=== PATIENT | female | born 1980 | race Caucasian/White ===

== ENCOUNTER → 2019-10-26 | Outpatient (CLI) | payer BC | LOC: GMAL 11:00 | PROVIDERS: ATTEND Family Medicine | DX: E53.8 Deficiency of other specified B group vitamins (principal); E03.8 Other specified hypothyroidism; E34.9 Endocrine disorder, unspecified; E55.9 Vitamin D deficiency, unspecified; Z79.899 Other long term (current) drug therapy; Z13.220 Encounter for screening for lipoid disorders ==

== ENCOUNTER 2020-02-25 05:13 | Emergency (ER) | payer BC ==
[2020-02-25] MEDS: SODIUM CHLORIDE 0.9% 1000ML 1,000 ML IVS ONE (05:50)
--- NOTE | 2020-02-25 06:05 | ED.PDOC ---
History of Present Illness - General Source: patient Exam Limitations: no limitations - History of Present Illness Initial Comments: The patient is a 39-year-old female brought in by EMS secondary to left lower quadrant abdominal pain that is been going on for 3 weeks. It got much worse last night. The patient does have a hard time sitting still. She reports that a lot of times she feels like she needs to urinate but cannot. She feels like she may be having a problem emptying her bladder. She does have known chronic constipation likely related to her Adderall. The patient received Zofran and Toradol prior to arrival. She does appear to have some difficulty mentating currently whether it is from the medications or pain or something else I am uncertain. Pupils are fairly small. She is alert and oriented. No respiratory distress. No chest pain. She reports a couple of episodes of nausea and vomiting over the last few days. The patient has had a hysterectomy in the past and she apparently had a abdominal surgery a few years ago for a bowel obstruction. No known history of any diverticulitis. Axillary temperature on the patient was 89 and a temporal temperature was 94. An oral temperature is currently being obtained. The patient does have a history of hypothyroidism but reports that she is taking her Synthroid. No history of sepsis. No history of any cardiac problems. No syncope. Corrected oral temperature is 97.4. Timing/Duration: getting worse, other - Weeks Improving Factors: nothing Worsening Factors: nothing Associated Symptoms: diaphoresis, loss of appetite, malaise, nausea/vomiting <Jaime Sewell - Last Filed: 02/25/20 06:40> <Ed Coppola - Last Filed: 02/25/20 07:47> - General Time Seen by Provider: 02/25/20 05:16 - History of Present Illness Allergies/Adverse Reactions: Allergies NO KNOWN ALLERGY Allergy (Unverified 07/01/13 13:01) Home Medications: Ambulatory Orders Amphetamine-Dextroamphetamine [Adderall] 1 tab PO 02/25/20 Dicyclomine HCl [Bentyl] 20 mg PO Q6H PRN #20 tab 02/25/20 Ibuprofen [Motrin] 400 mg PO Q6H PRN #20 tab 02/25/20 Levothyroxine Sodium [Synthroid] 50 mcg PO 02/25/20 Polyethylene Glycol 3350 [Miralax] 17 gm PO DAILY 15 Days #238 bottle 02/25/20 Review of Systems - Review of Systems Constitutional: States: diaphoresis, malaise EENTM: States: no symptoms reported Respiratory: States: no symptoms reported Cardiology: States: no symptoms reported Gastrointestinal/Abdominal: States: constipation, nausea, vomiting Genitourinary: States: see HPI Musculoskeletal: States: back pain - Left lower Skin: States: no symptoms reported Neurological: States: anxiety Endocrine: States: no symptoms reported All other Systems: No Change from Baseline <Jaime Sewell - Last Filed: 02/25/20 06:40> Past Medical History (General) - Patient Medical History Hx Seizures: No Hx Stroke: No Hx Dementia: No Hx Asthma: No Hx of COPD: No Hx Cardiac Disorders: No Hx Congestive Heart Failure: No Hx Pacemaker: No Hx Hypertension: No Hx Thyroid Disease: Yes Hx Diabetes: No Hx Gastroesophageal Reflux: Yes Hx Renal Disease: No Hx of HIV: No Hx MRSA: No Surgical History: Hysterectomy, other - Vaccination History Hx Tetanus, Diphtheria Vaccination: No Hx Influenza Vaccination: No Hx Pneumococcal Vaccination: No Immunizations Comment: refuses vaccines - Social History Hx Tobacco Use: No Hx Alcohol Use: No Hx Substance Use: No Hx Substance Use Treatment: No Hx Depression: No - Female History Patient is a Female of Child Bearing Age (10 -59 yrs old): Yes - hysterectomy <Jaime Sewell - Last Filed: 02/25/20 06:40> Family Medical History - Family History Mother Family History: No Known <Jaime Sewell - Last Filed: 02/25/20 06:40> Physical Exam - Physical Exam General Appearance: Alert, Anxious, Obvious distress Eye Exam: bilateral normal Ears, Nose, Throat: hearing grossly normal, normal ENT inspection Neck: full range of motion, supple Respiratory: lungs clear, normal breath sounds, no respiratory distress, no accessory muscle use Cardiovascular/Chest: normal peripheral pulses, regular rate, rhythm - Borderline sinus bradycardia, no edema Peripheral Pulses: radial,right: 2+, radial,left: 2+ Gastrointestinal/Abdominal: soft, other - Left lateral and lower abdominal discomfort to palpation. Rectal Exam: deferred Back Exam: no vertebral tenderness, CVA tenderness (L) - Questionable Extremity: normal range of motion, non-tender, normal inspection, no pedal edema, no calf tenderness, normal capillary refill Neurologic: insurance case manager II-XII nml as tested, alert, oriented x 3, other - Patient is technically alert and oriented x3. Mentation seems to be slow or focus is poor. Skin Exam: pallor Comments: Vital Signs - 24 hr 02/25/20 02/25/20 05:36 06:00 Temperature 94.4 F L 97.4 F L Pulse Rate [ 53 L montior] Respiratory 20 Rate Blood Pressure 137/91 [Left Arm] O2 Sat by Pulse 100 Oximetry <Jaime Sewell - Last Filed: 02/25/20 06:40> Progress - Progress Progress: 02/25/20 06:40 The patient is a 39-year-old female presented emergency room with 3 weeks of intermittent left lower quadrant pain worsening tonight. She is not entirely certain at this point. CT scan of abdomen pelvis with contrast is being done. Pain has significantly improved since arrival. Pain is gone from a 9 down to a 3. Bedside ultrasound by me post void shows minimal residual. There is some hematuria on the lab work. She cannot get past. Patient will be followed by oncoming ER physician. Vital signs are remaining stable. - Results/Orders Results/Orders: EKG shows normal sinus rhythm at 65 bpm. Borderline right axis deviation. Normal R wave progression. No ST segment or T wave changes indicative of acute ischemia. Borderline prolonged QT interval. Sinus arrhythmia. <Jaime Sewell - Last Filed: 02/25/20 06:40> - Progress Progress: 02/25/20 07:00 I assumed care of the patient after a detailed discussion with Dr. Sewell regard ing her presentation of left lower quadrant pain intermittently for the past 3 weeks with associated nausea and vomiting. CT pending at this time. UA did show some microscopic hematuria. Vital signs are reassuring at this time, pain improved from 9-3 after Toradol. CJT 02/25/20 07:46 Rechecked. Pain remains improved. Reviewed CT/lab findings and plan for discharge. Recommended follow-up with PCP in 3 to 5 days for recheck. Strict warnings given to return the emergency room for worsening pain, fever, blood in stool, vomiting blood, blood in urine, or any other concerns. Ed Coppola DO [facility] #[id number] - Results/Orders Results/Orders: EXAM: CT Abdomen/Pelvis with Contrast HISTORY: llq pain intermit 3 weeks, distant hx bowel obs COMPARISON: Abdomen two views 02/25/2020 TECHNIQUE: Abdomen/pelvis axial images acquired IV contrast. Coronal and sagittal reformats created. Exam performed according to departmental dose- optimization program which includes automated exposure control, adjustment of mA and/or kV according to patient size, and/or use of iterative reconstruction technique. FINDINGS: No free air or significant free fluid. Liver, gallbladder, spleen, pancreas, adrenals, both adnexa, and urinary bladder unremarkable. Hysterectomy. Few tiny hypodense round bilateral kidney lesions are too small to fully characterize by CT size criteria but statistically likely represent cysts. Small nonobstructing left renal midlevel stone. Nonopacified stomach, small bowel, appendix, and large bowel appear grossly unremarkable. Unremarkable abdominal aorta. Multiple small round bilateral inferior pelvic calcifications likely represent phleboliths. Bones unremarkable. IMPRESSION: 1. Small nonobstructing left renal stone. 2. Few tiny hypodense round bilateral kidney lesions are too small to fully characterize by CT size criteria but statistically likely represent cysts. 3. Hysterectomy. Electronically signed by: Deric Cuenca MD 02/25/2020 7:29 AM CDT <Ed Coppola - Last Filed: 02/25/20 07:47> Departure <Jaime Sewell - Last Filed: 02/25/20 06:40> <Ed Coppola - Last Filed: 02/25/20 07:47> - Departure Clinical Impression: Microscopic hematuria, Renal cyst Abdominal pain Qualifiers: Abdominal location: left lower quadrant Qualified Code(s): R10.32 - Left lower quadrant pain Constipation Qualifiers: Constipation type: unspecified constipation type Qualified Code(s): K59.00 - Constipation, unspecified Disposition: Discharge to Home or Self Care Condition: Good Instructions: DI for Abdominal Pain-Adult Referrals: Jean Cardoso III, MD [Primary Care Provider] - 1-5 Days Prescriptions: Dicyclomine HCl [Bentyl] 20 mg PO Q6H PRN #20 tab PRN Reason: Abdominal Cramping Ibuprofen [Motrin] 400 mg PO Q6H PRN #20 tab PRN Reason: Pain Polyethylene Glycol 3350 [Miralax] 17 gm PO DAILY 15 Days #238 bottle Home Medications: Ambulatory Orders Amphetamine-Dextroamphetamine [Adderall] 1 tab PO 02/25/20 Dicyclomine HCl [Bentyl] 20 mg PO Q6H PRN #20 tab 02/25/20 Ibuprofen [Motrin] 400 mg PO Q6H PRN #20 tab 02/25/20 Levothyroxine Sodium [Synthroid] 50 mcg PO 02/25/20 Polyethylene Glycol 3350 [Miralax] 17 gm PO DAILY 15 Days #238 bottle 02/25/20 Additional Instructions: Return to the emergency room immediately for worsening pain, fever, increased blood in urine, vomiting uncontrollably, or any other concerns
--- NOTE | 2020-02-25 06:09 | RAD ---
EXAM: Acute abdominal series. INDICATION: Left lower quadrant pain. COMPARISON: None. FINDINGS: Cardiac silhouette: Unremarkable. Polina: Unremarkable. Lobar consolidation: None. Pleural effusion: None. Pneumothorax: None. Other: None. Intraperitoneal free air: Negative. Bowel: No dilated loops of small bowel or air-fluid levels. Bones: Unremarkable. Other: There is a 3 mm calcification superimposed upon the left kidney. Phleboliths are noted within the pelvis. IMPRESSION: 3 mm calcification superimposed upon the left kidney which may represent nephrolithiasis. Nonspecific, nonobstructed bowel gas pattern. Electronically signed by: Aaron Ramon MD 02/25/2020 6:07 AM CDT
[2020-02-25] MEDS: POTASSIUM CHLORIDE ELIXIR 20 MEQ/15 ML UD PO ONE (06:39)
--- NOTE | 2020-02-25 07:31 | CT ---
EXAM: CT Abdomen/Pelvis with Contrast HISTORY: llq pain intermit 3 weeks, distant hx bowel obs COMPARISON: Abdomen two views 02/25/2020 TECHNIQUE: Abdomen/pelvis axial images acquired IV contrast. Coronal and sagittal reformats created. Exam performed according to departmental dose-optimization program which includes automated exposure control, adjustment of mA and/or kV according to patient size, and/or use of iterative reconstruction technique. FINDINGS: No free air or significant free fluid. Liver, gallbladder, spleen, pancreas, adrenals, both adnexa, and urinary bladder unremarkable. Hysterectomy. Few tiny hypodense round bilateral kidney lesions are too small to fully characterize by CT size criteria but statistically likely represent cysts. Small nonobstructing left renal midlevel stone. Nonopacified stomach, small bowel, appendix, and large bowel appear grossly unremarkable. Unremarkable abdominal aorta. Multiple small round bilateral inferior pelvic calcifications likely represent phleboliths. Bones unremarkable. IMPRESSION: 1. Small nonobstructing left renal stone. 2. Few tiny hypodense round bilateral kidney lesions are too small to fully characterize by CT size criteria but statistically likely represent cysts. 3. Hysterectomy. Electronically signed by: Deric Cuenca MD 02/25/2020 7:29 AM CDT
[2020-02-25 07:57] VITALS: BP 99/78; TEMP 96.9; O2SAT 97
== END 2020-02-25 07:55 | disposition home or self-care (01) ==
LOC: ER 05:13
DX: R10.32 Left lower quadrant pain (principal); R31.9 Hematuria, unspecified; N28.1 Cyst of kidney, acquired; E03.9 Hypothyroidism, unspecified; K59.00 Constipation, unspecified
CPT/HCPCS: 36415; 74019; 74177; 80053; 80307; 81001; 82150; 82550; 82553; 83605; 83690; 83735; 83880; 84439; 84443; 84484; 84703; 85025; 85379; 85610; 85730; 87040; 93005; J7030

== ENCOUNTER → 2020-03-01 | Outpatient (CLI) | payer BC ==
--- NOTE | 2020-03-02 11:34 | RAD ---
EXAM DESCRIPTION: IVP Intravenous Pyelogram/ Excretory Urogram: RF CLINICAL HISTORY: 39 years Female, LOWER ABD PN, UNSPECIFIED. 4 mm nonobstructing left renal stone recent CT scan abdomen and pelvis. COMPARISON: CT scan of the abdomen and pelvis with IV contrast February 24 and July 2019.. TECHNIQUE: Examination was monitored by Dr. Vazquez. Supine AP medical education manager image of the abdomen. Nonionic IV contrast injected followed by immediate AP kidneys. Five minute Supine AP abdomen and pelvis. 10 minute Bilateral supine oblique AP abdomen and pelvis. 10 minute AP pelvis. 15 minute AP supine abdomen and pelvis. 20 minute AP prone abdomen and pelvis. Post void AP supine abdomen and pelvis. No adverse reactions. FINDINGS: Pointing Machine Operator film shows a radiodense stone overlying the mid to upper left kidney. Similar location to a 4 mm radiodense stone seen on the prior [address] scans. Upper kidney is not on the image. Right kidney is obscured by gas and fecal material in the colon. No radiodense stones overlying the ureteral tracts. Bilateral pelvic vascular calcifications. Bowel gas pattern otherwise unremarkable. After administration of IV contrast, immediate symmetric visualization of nephrogram phase, bilateral kidneys. Long axis right kidney 12.2 cm and left kidney 13.4 cm. Radiodense stone stable in position left kidney. On the 5 minute image, the radiodense stone is noted within a mid left renal calyx. No hydronephrosis or mass effect bilaterally. No filling defects in the renal parenchyma bilaterally. Stable position of the stone on the oblique images. No mass effect on the urinary bladder. 15 minute supine and prone images show no hydronephrosis or hydroureter. Distal left ureter is not well seen but proximal ureter is not distended, and left renal stone is stable in position. The left ureter almost completely visualized on the 10 minute AP image and normal caliber. Image of the lower abdomen and pelvis post void shows the pelvic calcifications are vascular and not associated with urinary tracts. No asymmetry of the post void bladder.. IMPRESSION: 1. 4 mm radiodense stone in the mid collecting system of the left kidney also seen on prior CT scans in February and also 2018. Stable position and size. No hydronephrosis or hydroureter bilaterally. No radiodense stones in the right urinary tract. No radiodense stones in the urinary bladder. Electronically signed by: Jesse Vazquez MD 03/02/2020 11:33 AM CDT
== END ==
LOC: RAD 13:07
PROVIDERS: ATTEND Family Medicine
DX: N20.0 Calculus of kidney (principal)

== ENCOUNTER → 2020-03-03 | Outpatient (CLI) | payer BC ==
--- NOTE | 2020-03-03 15:37 | US ---
EXAM DESCRIPTION: Soft Tissue,Extremity CLINICAL HISTORY: 39 years Female, LEFT INGUINAL MASS COMPARISON: CT abdomen pelvis February 25, 2020. CT abdomen pelvis August 03, 2019. TECHNIQUE: Targeted sonographic imaging of the superficial structures left lower quadrant in the area palpated by the patient. FINDINGS: Sonographic imaging of the area left lower quadrant inguinal region area palpated by the patient was performed by the die sinking machine operator. This area shows a vascular structure measuring approximately 2.8 x 0.6 x 1.4 cm respectively. No Doppler waveform was documented to show if this is arterial or venous although the die sinking machine operator states these are superficial veins on report. On comparison CT, there is asymmetric prominence of a vascular complex which extends through the left inguinal canal into the mons pubis. I suspect this is the area that is imaged under ultrasound on this study. This vascular structure is in direct communication with the left gonadal vein or the salpingo-ovarian plexus. No solid mass or abnormal cystic structure is demonstrated at this location IMPRESSION: Prominent vascular plexus palpated by the patient in the left lower quadrant inguinal region believed to represent prominent salpingo-ovarian plexus on comparison CT. This would be the female equivalent of a varicocele. No mass, lymphadenopathy or abnormal cystic structure. Electronically signed by: Haim Mendez MD 03/03/2020 3:35 PM CDT
== END ==
LOC: US 13:32
PROVIDERS: ATTEND Surgery
DX: R19.09 Other intra-abdominal and pelvic swelling, mass and lump (principal); I87.8 Other specified disorders of veins; R10.9 Unspecified abdominal pain

== ENCOUNTER → 2020-07-31 | Outpatient (CLI) | payer BC | LOC: GMAL 14:01 | PROVIDERS: ATTEND Family Medicine | DX: E53.8 Deficiency of other specified B group vitamins (principal); E34.9 Endocrine disorder, unspecified; R53.82 Chronic fatigue, unspecified; Z79.899 Other long term (current) drug therapy; E55.9 Vitamin D deficiency, unspecified ==